=== PATIENT | male | born 1955 | race Caucasian/White ===

== ENCOUNTER 2017-02-25 18:36 | Emergency (ER) | payer OTHER ==
[~2017-02-25] VITALS: Ht 170.2 cm; Wt 87.7 kg
[2017-02-25 19:38] VITALS: BP 177/87
== END 2017-02-25 19:38 | disposition home or self-care (01) ==
LOC: ED 18:36
DX: S00.93XA Contusion of unspecified part of head, initial encounter (principal); W22.8XXA Striking against or struck by other objects, initial encounter; Y93.89 Activity, other specified; Y92.89 Other specified places as the place of occurrence of the external cause; Y99.8 Other external cause status

== ENCOUNTER 2018-12-14 15:29 | Emergency (ER) | payer OTHER ==
[~2018-12-14] VITALS: Ht 170.2 cm; Wt 86.2 kg
[2018-12-14 15:36] VITALS: Ht 170.2 cm; Wt 86.2 kg
[2018-12-14 19:43] VITALS: BP 154/85
== END 2018-12-14 19:43 | disposition home or self-care (01) ==
LOC: ED 15:29
DX: M54.5 Low back pain (principal); I10 Essential (primary) hypertension; E11.9 Type 2 diabetes mellitus without complications
CPT/HCPCS: J1885

== ENCOUNTER 2018-12-19 12:37 | Emergency (ER) | payer OTHER ==
[~2018-12-19] VITALS: Ht 172.7 cm; Wt 88.5 kg
[2018-12-19 12:38] VITALS: BP 204/80; Ht 172.7 cm; Wt 88.5 kg
== END 2018-12-19 13:38 | disposition home or self-care (01) ==
LOC: ED 12:37
DX: M51.27 Other intervertebral disc displacement, lumbosacral region (principal)